=== PATIENT | male | born 1960 | race Caucasian/White ===

== ENCOUNTER 2020-04-20 10:30 | Outpatient (CLI) | payer OTHER, SELFPAY ==
--- NOTE | 2020-04-20 10:54 | XR_ITS ---
WS: [id number] EYE TECHNIQUE: 2 views of the skull CLINICAL INFORMATION: SCREENING FOR MRI COMPARISON: None. FINDINGS: No radiopaque foreign bodies. XR/XR eye foreign body [id number] IMPRESSION: No radiopaque foreign bodies.
--- NOTE | 2020-04-20 10:55 | MR_ITS ---
WS: [id number] MRI LUMBAR SPINE NONCONTRAST TECHNIQUE: Sagittal T1, T2 and STIR imaging. Axial T1 and T2 imaging. CLINICAL INFORMATION: LUMBAR RADICULOPATHY;RT SCIATIC NERVE PAIN;NEURALGIA LOWER E COMPARISON: None. FINDINGS: Mild lumbar curve. No acute compression. Slight anterolisthesis L4 on L5. Disc bulging worse L5-S1. L1-L2: Mild disc bulging with slight effacement of ventral thecal sac. Mild facet arthropathy. Spinal canal and foramen are patent. L2-L3: Mild disc bulging with endplate ridging. Slight effacement of the ventral thecal sac. Narrowin g of the subarticular recess bilaterally left greater than right. Mild facet arthropathy. L3-L4: Mild disc bulging with slight effacement of ventral thecal sac. Narrowing of the right subarti cular recess. Impingement traversing right L4 nerve root. Mild right greater than left foraminal narr owing. Moderate facet arthropathy. L4-L5: Mild disc bulging eccentric to the right. Impingement right subarticular recess and traversing right L5 nerve root. Mild central canal stenosis. Mild right greater than left foraminal narrowing. Moderate facet arthropathy. L5-S1: Right subarticular disc protrusion impinges the traversing right S1 nerve root in the subartic ular recess. Recommend correlation for right S1 nerve root symptoms. Advanced facet arthropathy. Smal l facet effusions. Slight anterolisthesis L5 on S1. Moderate to severe right and mild left foraminal narrowing. Visualized pelvic bony structures: Normal. Paravertebral soft tissues: Normal. MR/MR lumbar spine wo con* [id number] IMPRESSION: 1. Mild lumbar curve. No acute compression. 2. Mild central canal stenosis L2-3, L3-L4 and L4-L5. Impingement traversing l eft L3, right L4, and right L5 nerve roots respectively. 3. Prominent right subarticular disc protrusion L5-S1 impinges the right S1 ne rve root. Recommend correlation for right S1 nerve root symptoms. 4. Moderate to severe right L5-S1 foraminal narrowing. 5. Moderate facet arthropathy L4-L5 and advanced facet arthropathy L5-S1.
== END 2020-04-20 10:31 | disposition home or self-care (01) ==
LOC: RAD 10:33
PROVIDERS: PCP Nurse Practitioner Family; Visit Provider Registered Nurse
DX: Z02.6 Encounter for examination for insurance purposes (principal); M54.16 Radiculopathy, lumbar region; M54.31 Sciatica, right side; M47.816 Spondylosis without myelopathy or radiculopathy, lumbar region; M47.817 Spondylosis without myelopathy or radiculopathy, lumbosacral region; M51.27 Other intervertebral disc displacement, lumbosacral region; M48.061 Spinal stenosis, lumbar region without neurogenic claudication
CPT/HCPCS: 70030; 72148

== ENCOUNTER → 2020-05-10 15:10 | Outpatient (BNVA) | payer OTHER, SELFPAY | PROVIDERS: PCP Nurse Practitioner Family; Referring Provider Registered Nurse; Visit Provider Orthopaedic Surgery | DX: M48.062 Spinal stenosis, lumbar region with neurogenic claudication | CPT/HCPCS: 72114 ==

== ENCOUNTER → 2020-05-25 16:45 | Outpatient (BNVA) | payer OTHER, SELFPAY | PROVIDERS: PCP Nurse Practitioner Family; Visit Provider Orthopaedic Surgery | DX: Z01.812 Encounter for preprocedural laboratory examination (principal); M48.062 Spinal stenosis, lumbar region with neurogenic claudication | CPT/HCPCS: 87635 ==

== ENCOUNTER 2020-05-30 09:10 | Day surgery (SDC) | payer OTHER, SELFPAY ==
[2020-05-23 08:34] VITALS: BMI 30.7
--- NOTE | 2020-05-23 08:57 | P.ANESASSM_ITS ---
Pre-Anesthetic Assessment Pre-Anesthetic Assessment: Height/Weight: Height 1.8 m Weight 99.79 kg Preop Diagnosis: back pain Proposed Procedure: Operation Date: 05/30/20 09:10 Proposed Procedures p L4/5 Laminotomy with partital facetectomy L5/S1 diskectomy M48.06 [id number](Not Applicable) - Carl Ruiz, DO Familial anesthetic complications: None Social: Social History: No alcohol and No tobacco Exam: Pre-Anes Outpt Exam: alert, oriented x 3, clear to auscultation bilaterally and regular rate & rhythm Airway: MP: 3 Dentition: False and Other (missing teeth (knocked out at work) - upper dentures) CV/HEM: CV/HEM: HTN Musc/skel: Musc/skel: Lower Back Pain Comments: R leg pain from back Neuropsych: Neuropsych: Neuropathy (R foot/toes, r lower leg weakness) Anesthetic Plan: ASA status: 2 Anesthesia: General Risk of > 500 ml bloo d loss (7ml/kg in children): No Data Anesthesia Cardiac Studies: No Data to Display
== END 2020-05-30 11:00 | disposition home or self-care (01) ==
LOC: OPS 02-02 13:59
PROVIDERS: PCP Nurse Practitioner Family; Visit Provider Orthopaedic Surgery
DX: Z01.818 Encounter for other preprocedural examination (principal)

== ENCOUNTER → 2020-07-15 09:44 | Outpatient (BNVA) | payer OTHER, SELFPAY | PROVIDERS: PCP Nurse Practitioner Family; Referring Provider Orthopaedic Surgery; Visit Provider Anesthesiology Pain Medicine | DX: M54.41 Lumbago with sciatica, right side (principal); M54.42 Lumbago with sciatica, left side; M48.062 Spinal stenosis, lumbar region with neurogenic claudication; M54.9 Dorsalgia, unspecified | CPT/HCPCS: 99205 ==

== ENCOUNTER → 2020-07-26 13:27 | Outpatient (BNVA) | payer OTHER, SELFPAY | PROVIDERS: PCP Nurse Practitioner Family; Visit Provider Anesthesiology Pain Medicine | DX: M54.16 Radiculopathy, lumbar region (principal); M48.062 Spinal stenosis, lumbar region with neurogenic claudication; M54.9 Dorsalgia, unspecified | CPT/HCPCS: 64483; 64484; J1030; J3490 ==

== ENCOUNTER → 2020-08-09 12:38 | Outpatient (BNVA) | payer OTHER, SELFPAY | PROVIDERS: PCP Nurse Practitioner Family; Visit Provider Anesthesiology Pain Medicine | DX: M54.16 Radiculopathy, lumbar region (principal); M54.9 Dorsalgia, unspecified | CPT/HCPCS: 64483; 64484; J1040; J3490 ==

== ENCOUNTER → 2020-08-26 09:16 | Outpatient (BNVA) | payer OTHER, SELFPAY | PROVIDERS: PCP Nurse Practitioner Family; Visit Provider Anesthesiology Pain Medicine | DX: M54.9 Dorsalgia, unspecified (principal); M48.062 Spinal stenosis, lumbar region with neurogenic claudication | CPT/HCPCS: 99214 ==

== ENCOUNTER → 2020-09-16 10:34 | Outpatient (BNVA) | payer OTHER, SELFPAY | PROVIDERS: PCP Nurse Practitioner Family; Visit Provider Orthopaedic Surgery | DX: Z01.812 Encounter for preprocedural laboratory examination (principal); Z20.822 Contact with and (suspected) exposure to COVID-19 | CPT/HCPCS: 87635 ==

== ENCOUNTER 2020-09-21 08:06 | Day surgery (SDC) | payer OTHER, SELFPAY ==
[2020-09-16 12:22] VITALS: BMI 32.3
--- NOTE | 2020-09-16 12:36 | ANES.PREANE2 ---
Pre-Anesthetic Assessment Pre-Anesthetic Assessment: Height/Weight: Height 1.8 m Weight 105.233 kg Preop Diagnosis: lumbar stenosis Proposed Procedure: Operation Date: 09/21/20 15:25 Proposed Procedures p L4/5 Laminotomy with partital facetectomy 90209 11345 M48.06(Not Applicable) - Carl Ruiz DO s L5/S1 diskectomy(Not Applicable) - Carl Ruiz DO Familial anesthetic complications: None Social: Social History: No alcohol and No tobacco Exam: Pre-Anes Outpt Exam: alert, oriented x 3, clear to auscultation bilaterally and regular rate & rhythm Airway: Cervical ROM: WNL MP: 3 Dentition: False and Other (missing, poor denition) CV/HEM: CV/HEM: HTN Musc/skel: Musc/skel: Lower Back Pain Anesthetic Plan: ASA status: 2 Risk of > 500 ml blood loss (7ml/kg in children): No Other Pertinent Information: States he got blood work at his PCP recently and everything came back good. Patient called office and had them fax to . Awaiting fax results. Data Anesthesia Cardiac Studies: No Data to Display
[2020-09-21] VITALS (9 sets, daily range): BP systolic 136–176; BP diastolic 77–94; PULSE 65–85; RESP 16–23; TEMP 36.1–37.3; O2SAT 94–97
--- NOTE | 2020-09-21 | SCC_ITS ---
Procedure Done: 1. Bilateral laminectomy with partial facetectomis L4/5 2. Bilateral laminectomy with partial facetectomies L5/S1 16.0 seconds of fluoroscopic guidance, for a cumulative dose of 8.90 mGy, was provided to Dr. Ruiz by the radiology department. C-arm images of the lumbar spine were saved for the patient's permanent record. [facility]
--- NOTE | 2020-09-21 | XR_ITS ---
WS: [id number] Lumbar spine, C-arm fluoroscopy views, 09/21/2020 Clinical Data: Laminotomy with partial facetectomy disketomy Comparison: Lumbar spine, 05/10/2020. Findings: Dr. Ruiz performed laminotomy at L4-L5 and L5-S1. XR/XR lumbar spine 2-3V* [id number] Impression: Laminotomy at L4-L5 and L5-S1.
[2020-09-21] MEDS: sodium chloride 0.9% 1,000 ML 30 ML IV (08:37)
--- NOTE | 2020-09-21 09:28 | P.ANESUD_ITS ---
Pre-Anesthetic Update Pre-Anesthetic Assessment: Date of Surgery/Procedure: 09/21/20 Preop Sunita gnosis: lumbar stenosis Proposed Procedure: Operation Date: 09/21/20 09:55 Proposed Procedures p L4/5 Laminotomy with partital facetectomy [id number] M48.06(Not Applicable) - Carl H Sara, DO s L5/S1 diskectomy(Not Applicable) - Carl H Sara, DO Any changes to Pre-Anesthetic Assessment?: No Last Intake: Intake Last Liquid Date 09/20/20 Last Liquid Time 21:00 Last Solid Date 09/20/20 Last Solid Time 18:00 Vitals: Temperature 99.2 F 09/21/20 08:20 Temperature Source Temporal Artery S can 09/21/20 08:20 Pulse Rate 68 09/21/20 08:20 Respiratory Rate 18 09/21/20 08:20 Blood Pressure 141/82 09/21/20 08:43 Blood Pressure Raquel n 101 09/21/20 08:43 Pulse Oximetry 95 09/21/20 08:20 Oxygen Delivery Me thod 09/21/20 08:24 Exam: Pre-Anes Outpt Exam: alert, oriented x 3, clear to auscultation bilaterally and regular rate & rhythm Cardiac Studies: No Data to Display
--- NOTE | 2020-09-21 11:19 | W.PM.OPSUD ---
Surgery/Procedure H&P Update DATE OF PROCEDURE: September 21, 2020 DATE H&P PERFORMED: 08/30/20 H&P UPDATE INFORMATION: I have reviewed H&P completed within last 30 days, I have examined patient prior to procedure and No changes to prior documentation PREOP DIAGNOSIS: lumbar stenosis PLANNED PROCEDURE: Operation Date: 09/21/20 09:55 Proposed Procedures p L4/5 Laminotomy with partital facetectomy [id number] M48.06(Not Applicable) - Carl Ruiz DO s L5/S1 diskectomy(Not Applicable) - Carl Ruiz DO
--- NOTE | 2020-09-21 13:17 | PM.OP ---
Operative Report Date of procedure: September 21, 2020 Pre-op Diagnosis: lumbar stenosis L4/5 and L5/S1 Post-op diagnosis: same Procedure Done: 1. Bilateral laminectomy with partial facetectomis L4/5 2. Bilateral laminectomy with partial facetectomies L5/S1 Surgeon: Carl Ruiz Anesthesia: General Estimated blood loss (mL): 20 Condition: stable Disposition: PACU Procedure: 1. Bilateral laminectomy with partial facetectomis L4/5 2. Bilateral laminectomy with partial facetectomies L5/S1 Patient is brought to the operative suite. After undergoing anesthesia they are placed in the supine position. All areas of impingement are well padded. Patient is then prepped and draped in the normal sterile fashion. A skin incision is made over the L4/5 level. This is confirmed under c-arm guidance. A series of dilators are passed and the tubular retractor is docked on the L4 lamina. A bovie is used to clear the soft tissue off the lamina and the L 4/5 facet joint. A high speed nkechi is then used to perform the laminectomy and take down the medial aspect of the L 4/5 facet joint. A kerrison rongeure was then used to take down the remaining lamina and smooth the edged of the laminectomy up to the point where the ligamentum flavum attaches. Attention was then brought to the medial aspect of the facet joint. The remaining medial aspect of the superior and inferior aspect of the facet joint were taken down with the kerrison from the pedicle of L4 to L 5. The facet joint had significant hypertrophy. Attention was then brought to the Ligamentum Flavum. The ligament was taken down from the lamina of L4 to L5 and out medially to the remaining facet joint. The ligament was thick. The dura was then exposed. The dura was in good repair. The L4 nerve was then traced with a curette out the L4/5 foramen and found to be adequately decompressed. The L5 nerve was traced with a curette around the L5 pedicle. The lateral recess was opened with a kerrison helping to further decompress the L5 nerve. The tubular retractor was then tilted to the contralateral side. The bovie was used to take down the soft tissue on the spinous process. The high speed nkechi was used to take down the spinous process and then the contralateral lamina of L4. The kerrison rongeur was used to take down the remaining lamina to the point where the ligamentum flavum attached and the ligamentum flavum was taken down from L4 to L5. The kerrison rongeur was then used to reach across and take down the medial aspect of the contralateral L4/5 facet joint.The currete was used to trace the contralateral L4 nerve out the L4/5 foramen to make sure it was decompressed adequatesly and the L5 was traced around the L5 pedicle. The lateral recess was opened further with the kerrison to ensure the L5 is adequately decompressed. A skin incision is made over the L5/S1 level. This is confirmed under c-arm guidance. A series of dilators are passed and the tubular retractor is docked on the L5 lamina. A bovie is used to clear the soft tissue off the lamina and the L 5/S1 facet joint. A high speed nkechi is then used to perform the laminectomy and take down the medial aspect of the L 5/S1 facet joint. A kerrison rongeure was then used to take down the remaining lamina and smooth the edged of the laminectomy up to the point where the ligamentum flavum attaches. Attention was then brought to the medial aspect of the facet joint. The remaining medial aspect of the superior and inferior aspect of the facet joint were taken down with the kerrison from the pedicle of L5 to S1. The facet joint had significant hypertrophy. Attention was then brought to the Ligamentum Flavum. The ligament was taken down from the lamina of L5 to S1 and out medially to the remaining facet joint. The ligament was thick. The dura was then exposed. The dura was in good repair. The L5 nerve was then traced with a curette out the L5/S1 foramen and found to be adequately decompressed. The LS1 nerve was traced with a curette around the S1 pedicle. The lateral recess was opened with a kerrison helping to further decompress the S1 nerve. The tubular retractor was then tilted to the contralateral side. The bovie was used to take down the soft tissue on the spinous process. The high speed nkechi was used to take down the spinous process and then the contralateral lamina of L5. The kerrison rongeur was used to take down the remaining lamina to the point where the ligamentum flavum attached and the ligamentum flavum was taken down from L5 to S1. The kerrison rongeur was then used to reach across and take down the medial aspect of the contralateral L5/S1 facet joint.The currete was used to trace the contralateral L5 nerve out the L5/S1 foramen to make sure it was decompressed adequatesly and the S1 was traced around the S1 pedicle. The lateral recess was opened further with the kerrison to ensure the S1 is adequately decompressed. Wound is then irrigated copiously with saline and surgiflo is used to stop any bleeding. The tubular retractor is removed and the wound is closed with vicryl and monocryl suture. Glue is then used to protect the wound. A sterile dressing is then placed. Patient was then placed in the supine position and transferred to the PACU in stable condition.
--- NOTE | 2020-09-21 13:32 | SUR.PHASEI ---
PT RESTLESS , DOES NOT AWAKE, PT RUBBING NOSE OFF AND ON TAKES MASK OFF REPEATEDLY VSS.
[2020-09-21] MEDS: HYDROcodone-acetaminophen 5-325 mg Tablet 1 TAB PO (14:20)
--- NOTE | 2020-09-21 14:31 | ANE.PACU2 ---
Inpatient post-anesthesia follow up: Airway intact: Yes Vital signs: Temperature 97 F Pulse Rate 68 Respiratory Rate 18 Blood Pressure 136/77 Pulse Oximetry 95 Oxygen Delivery Me thod Room Air Oxygen Flow Rate 8 Fraction of Inspir ed Oxygen Hydration adequate: Yes Nausea and vomiting: No Pain level: 3 Mental status: Baseline
== END 2020-09-21 14:40 | disposition home or self-care (01) ==
PROVIDERS: PCP Nurse Practitioner Family; Visit Provider Orthopaedic Surgery
PROC: (CPT 63047; principal; 2020-09-21 09:55)
PROC: (CPT 63047; 2020-09-21 09:55)
DX: M48.061 Spinal stenosis, lumbar region without neurogenic claudication (principal); I10 Essential (primary) hypertension
CPT/HCPCS: 63047; 63048; 72100; 76000; J0690; J1100; J2405; J2704; J2710; J3010; J3490; J7030

== ENCOUNTER → 2020-12-20 07:56 | Outpatient (BNVA) | payer OTHER, SELFPAY | PROVIDERS: PCP Nurse Practitioner Family; Visit Provider Orthopaedic Surgery | DX: M48.062 Spinal stenosis, lumbar region with neurogenic claudication (principal); Z98.890 Other specified postprocedural states; Z47.89 Encounter for other orthopedic aftercare | CPT/HCPCS: 72100 ==

== ENCOUNTER 2021-05-09 14:44 | Outpatient (CLI) | payer OTHER, SELFPAY ==
--- NOTE | 2021-05-09 15:15 | MR_ITS ---
WS: [id number] MRI LUMBAR SPINE WITH AND WITHOUT CONTRAST HISTORY: Prior surgery in September 2020. Bilateral leg pain. COMPARISON: 04/20/2020 TECHNIQUE: Sagittal and axial multisequence imaging is submitted. Sagittal and axial T1 fat sat seque nces ProHance 17 cc IV. Mild degenerative changes throughout the cervical and thoracic spine. Mild central stenosis at C3-4 a nd C5-6. Similar to the prior study. 3 mm retrolisthesis of L2. Disc spaces are narrowed throughout, most significant at L2-3 and L3-4. No marrow edema or fracture. Conus terminates normally at L1-2 disc level. L1-L2: Mild annular disc bulging with a small central disc protrusion. Mild effacement of ventral CS F and facet arthritis. No high-grade stenosis. L2-L3: Mild annular disc bulging and osteophytic ridging. Shallow central disc protrusion and disc de monstrates broad bulging into the LEFT foramen. Mild bilateral foraminal and subarticular recess sten osis. L3-L4: Diffuse osteophytic ridging with a central disc protrusion. Broad-based disc bulge and possibl e protrusion extends into the RIGHT foramen and far lateral. There is disc contacting the L3 nerve ro ot and mild effacement of CSF centrally. L4-L5: Mild annular disc bulging with a shallow RIGHT paracentral broad-based protrusion. Effacement of the ventral CSF. There is disc contacting the L4 and L5 nerve roots. New RIGHT hemilaminectomy def ect. Small amount of fluid in the facet joints. Bilateral foraminal stenosis is mild and similar to t he prior study. L5-S1: Diffuse annular disc bulging and osteophytic ridging. RIGHT paracentral disc/osteophyte comple x encroaching upon the thecal sac. There is less disc and osteophyte contact on the RIGHT S1 nerve ro ot. Effacement of fat in the RIGHT L5-S1 foramen. Suspect disc protrusion in the RIGHT foramen. The e xtent of fat effacement has progressed since the prior study. Marked facet joint arthritis bilaterall y and increase fluid in the facet joints. RIGHT hemilaminectomy defect. Postoperative enhancement jeancarlos ng the hemilaminectomy site. No abscess. There is enhancement surrounding the L4 and L5 facet joints in the soft tissues. No abscess or postop erative collection. MR/MR lumbar spine wo/w con [id number] IMPRESSION: 1. Since the prior lumbar MRI examination patient's undergone RIGHT hemilamine ctomy defects at L4-5 and L5-S1. Satisfactory postsurgical findings. No abscess . 2. Improved RIGHT subarticular disc protrusion at L5-S1 with less contact on t he RIGHT S1 nerve root. There is still a small amount of disc contact on the ne rve root. Increased soft tissue in the RIGHT foramen with adjacent enhancement. I suspect there is probably a small disc protrusion in the RIGHT foramen causi ng effacement although some of these changes may be postoperative. The RIGHT fo raminal stenosis at L5-S1 has progressed. 3. Disc bulging and a shallow RIGHT paracentral disc protrusion at L4-5. Disc slightly contacts the L4 and L5 nerve roots bilaterally. Mild foraminal stenosi s similar to this prior study. 4. There is multilevel facet joint arthritis and disc disease and osteophytosi s as above. No high-grade stenosis. The most significant findings are L4-5 and L5-S1.
== END 2021-05-09 14:45 | disposition home or self-care (01) ==
LOC: RADSHAW 14:49
PROVIDERS: PCP Nurse Practitioner Family; Visit Provider Orthopaedic Surgery
DX: M48.062 Spinal stenosis, lumbar region with neurogenic claudication (principal); M96.1 Postlaminectomy syndrome, not elsewhere classified; M51.27 Other intervertebral disc displacement, lumbosacral region; M51.26 Other intervertebral disc displacement, lumbar region; M51.36 Other intervertebral disc degeneration, lumbar region; M51.37 Other intervertebral disc degeneration, lumbosacral region
CPT/HCPCS: 72158; A9579

== ENCOUNTER 2021-08-18 13:18 | Inpatient (IN) | payer OTHER, SELFPAY ==
[2021-08-17 11:38] VITALS: BMI 33.3
[2021-08-18] VITALS (29 sets, daily range): BP systolic 82–133; BP diastolic 50–83; PULSE 67–89; RESP 12–22; TEMP 36.3–36.8; O2SAT 90–96; BMI 19.3
--- NOTE | 2021-08-18 | SCC_ITS ---
Procedure done: 1. L5/S1 Interbody fusion with posterolateral fusion 2. Instrumentation L4 to S1 3. Cage at L5/S1 4. revision Laminectomy L5 with partial facetectomies L5/S1 5. revision laminectomy L4 with partial facetectomies L4/5 6. use of autograft from same incision 7. allograft 8. Bone marrow aspirate from right Iliac crest 9. computer navigation / stereotactic for spine 9 seconds of fluoroscopic guidance, for a cumulative dose of 51.9 mGy, was provided to Dr. Ruiz by the radiology department. C-arm images of the lumbar spine were saved for the patient's permanent record. [facility]
--- NOTE | 2021-08-18 | XR_ITS ---
WS: [id number] C-ARM RADIOGRAPHS LUMBAR FUSION; 4 IMAGES HISTORY: lumbar fusion l4 to pelvis COMPARISON: None available. Intraoperative imaging during extensive posterior lumbar fusion. Fusion is noted from L4 to S1 with i nterbody spacer at L5-S1. XR/XR lumbar spine 2-3V* [id number] IMPRESSION: Intraoperative imaging during posterior fusion lumbar spine.
[2021-08-18 06:31] LABS: Basophils % 0.5 %; Eosinophils # 0.2 10^3/uL (0.0-0.8); Eosinophils % 2.3 %; Hematocrit 47.9 % (42.0-52.0); Hemoglobin 16.1 g/dL (11.7-16.6); Lymphocytes # 2.5 10^3/uL (0.8-4.8); Lymphocytes % 33.6 %; Mean Corpuscular HGB Conc 33.6 g/dL (30.0-36.0); Mean Corpuscular Hemoglobin 29.9 pg (28.0-34.0); Mean Corpuscular Volume 88.9 fl (80-94); Mean Platelet Volume 12.3 fL (7.4-10.4); Monocytes # 0.6 10^3/uL (0.2-0.9); Monocytes % 8.4 %; Neutrophils # 4.07 10^3/uL (1.8-7.7); Neutrophils % 55.1 %; Nucleated Red Blood Cells % 0 %; Platelet Count 165 10^3/cmm (130-400); Red Blood Count 5.39 10^6/uL (4.1-5.3); Red Cell Distribution Width 12.5 % (12.1-15.1); White Blood Count 7.4 10^3/uL (4.0-10.0)
--- NOTE | 2021-08-18 06:39 | ANES.PREANE2 ---
Pre-Anesthetic Assessment Height/Weight: Height 1.8 m Weight 108.409 kg Preop Diagnosis: Lumbar stenosis with neurogenic claudication Operation Date: 08/18/21 07:00 Proposed Procedures p PLIF L4/5, L5/S1; 57087/48031/[id number] X2/83719/74980/M48.062(Not Applicable) - Carl Ruiz, Familial anesthetic complications: None Was Beta Stone taken within 24 hours: N/A Was Clonidine taken within 24 hours: N/A Last intake: Intake Last Liquid Date 08/17/21 Last Liquid Time 20:30 Last Solid Date 08/17/21 Last Solid Time 18:00 Social No alcohol and No tobacco Exam alert, oriented x 3, clear to auscultation bilaterally and regular rate & rhythm Airway Mallampati: Class III Dentition: false Pulmonary None reported CV/HEM Hypertension (On same dose of lisinopril for 3 years, has added amlodipine) Hepatic None reported GI None reported Metabolic None reported Musc/skel Lower Back Pain Neuropsych None reported Anesthetic Plan ASA status: 2 Anesthesia: General Risk of > 500 ml blood loss (7ml/kg in children): No Medications/Allergies Home Medications Medication Instructions Recorded Confirmed Last Taken Type lisinopril 20 mg tablet 20 mg PO DAILY 05/10/20 08/18/21 08/17/21 History amlodipine 5 mg tablet 5 mg PO DAILY 07/26/20 08/18/21 08/18/21 History ibuprofen 200 mg tablet 200 mg PO Q6H PRN 07/11/21 08/18/21 08/17/21 History acetaminophen 325 mg capsule 325 mg PO QID PRN 08/17/21 08/18/21 08/16/21 History (Tylenol) aspirin 81 mg tablet,delayed 81 mg PO DAILY 08/17/21 08/18/21 08/16/21 History release Allergies Allergy/AdvReac Type Severity Reaction Status Date / Time No Known Allergies Allergy Verified 08/18/21 05:59 PFSH Anesthesia Social History Smoking and tobacco status: former smoker Data Anesthesia : 08/18/21 06:14 Short CBC 08/18/21 Range/Units 06:14 WBC 7.4 (4.0-10.0) 10^3/uL Hgb 16.1 (11.7-16.6) g/dL Hct 47.9 (42.0-52.0) % MCV 88.9 (80-94) fl Plt Count 165 (130-400) 10^3/cmm Neut % (Auto) 55.1 % Neut # (Auto) 4.07 (1.8-7.7) 10^3/uL Cardiac Studies: No Data to Display
[2021-08-18] MEDS: sodium chloride 0.9% 1,000 ML 30 ML IV (06:43)
--- NOTE | 2021-08-18 06:51 | W.PM.OPSUD ---
Surgery/Procedure H&P Update DATE OF PROCEDURE: August 18, 2021 DATE H&P PERFORMED: 07/18/21 H&P UPDATE INFORMATION: I have reviewed H&P completed within last 30 days, I have examined patient prior to procedure and No changes to prior documentation PREOP DIAGNOSIS: Lumbar stenosis with neurogenic claudication PLANNED PROCEDURE: Operation Date: 08/18/21 07:00 Proposed Procedures p PLIF L4/5, L5/S1; [id number] X2/50145/54770/M48.062(Not Applicable) - Carl Ruiz DO
[2021-08-18 07:12] LABS: Anion Gap 13.3 (5-19); Blood Urea Nitrogen 21 mg/dL (8-23); Calcium 8.2 mg/dL (8.5-10.5); Carbon Dioxide 25 mmol/L (22-29); Chloride 105 mmol/L (98-107); Glucose 119 mg/dL (65-115); Osmolality Calculated 292 mOsm/kg (285-295); Potassium 4.3 mmol/L (3.5-5.1); Sodium 139 mmol/L (136-145)
[2021-08-18] MEDS: vancomycin 1,000 MG SDV 1000 MG XX (07:48)
[2021-08-18] MEDS: heparin, porcine 1,000 unit/mL INJ 10 mL 10000 UNIT INJECTION (07:49)
--- NOTE | 2021-08-18 08:29 | SUR.OPER ---
notified of surgical progress.
--- NOTE | 2021-08-18 11:25 | P.PCN_ITS ---
PACU note Narrative: VSS, Good respiratory effort, report to PEARL HAND Exam: awake
--- NOTE | 2021-08-18 11:25 | PM.PACU ---
PACU note Narrative: VSS, Good respiratory effort, report to MANAGER SHOP Exam: awake
[2021-08-18] MEDS: fentaNYL 50 mcg/mL INJ 2mL IVP ×2 (11:39→11:49)
--- NOTE | 2021-08-18 11:42 | SUR.PHASEI ---
11:16 RECEIVED PATIENT FROM OR STAFF. RESPONDS TO VOICE AIRWAY SUCTIONED. NSR ON MONITOR. GOOD CHEST RISE AND FALL. 11:25 ROM AND SENSATION IN ALL 4 EXTREMITIES. 11:30 MEDICATED FOR BACK PAIN. DENIES NAUSEA.
--- NOTE | 2021-08-18 11:44 | P.OP_ITS ---
Operative Report Date of procedure: August 18, 2021 Pre-op diagnosis: Preop Diagnosis Lumbar stenosis with neurogenic claudication Post-op diagnosis: same Procedure done: 1. L5/S1 Interbody fusion with posterolateral fusion 2. Instrumentation L4 to S1 3. Cage at L5/S1 4. revision Laminectomy L5 with partial facetectomies L5/S1 5. revision laminectomy L4 with partial facetectomies L4/5 6. use of autograft from same incision 7. allograft 8. Bone marrow aspirate from right Iliac crest 9. computer navigation / stereotactic for spine Surgeon: Carl Ruiz Information Technology Security Analyst: Canelo Bravo Information Technology Security Analyst: The study assistant, Canelo Bravo, PAC was needed for his expertise under the microscope. He was important and necessary throughout the procedure to complete in a safe and timely manner. He assisted with patient positioning prepping and draping tissue retraction suctioning of the operative field protection of the dural sac and tissue closure Estimated blood loss (mL): 500 Procedure: 1. L5/S1 Interbody fusion with posterolateral fusion 2. Instrumentation L4 to S1 3. Cage at L5/S1 4. revision Laminectomy L5 with partial facetectomies L5/S1 5. revision laminectomy L4 with partial facetectomies L4/5 6. use of autograft from same incision 7. allograft 8. Bone marrow aspirate from right Iliac crest 9. computer navigation / stereotactic for spine Patient is brought to the operative suite. After undergoing anesthesia, the patient had neuro monitoring attached. Patient was then placed in the prone position on the Ramses table. All areas of impingement were well-padded. Patient was then prepped and draped in the normal sterile fashion. Skin incision was then made over the L4 to S1 space. Subperiosteal dissection was made out to the transverse processes of L4 bilaterally and L5 bilaterally and out to the sacral ala bilaterally. Once exposure was complete attention was then brought to getting the bone marrow aspirate. The [employer] bone marrow aspirate kit was used to aspirate bone marrow aspirate. This was done by using the sharp probe to open up the bone. Aspiration was performed and then the blunt probe was then used to dissect down to through the bone tunnel. An aspirating well drawn back a millimeter approximately 20 cc of bone marrow aspirate was used. And mixed with the allograft and autograft bone that will be used. Next attention brought to placing the fiducial. 2 pins were placed into the right iliac crest. These pins were removed at the end of the case. These pins were then attached to the fiducial. The C-arm was then brought in and spun around the patient. The information from the C-arm was then linked to the computer and then to the fiducial in order to facilitate using the computer navigation for placing the pedicle screws. The technique for placing the pedicle screws was to use a drill followed by the gearshift probe linked to computer navigation Followed by the ball probe to feel the superior inferior medial lateral tejeda of the pedicles. Then placement of the screws with computer navigation Was done at each pedicle. Screws were placed at L4 bilaterally and L 5 bilaterally and S1 pedicles bilaterally. Next attention was brought to doing the laminectomy at L4. The ligamentum flavum was taken down from L4-L5. He was started on the right side. It was freed up from the bone. This was done using a high-speed bur patient had a previous right-sided laminotomy this was taken down with curettes Bovie and Kerrison rongeurs. The facet was taken down medially on the right side. Facil itate freeing up the L4 nerve as it passed out the L4-5 foramen on the right side. This process was also repeated on the left side the L4 nerve roots were completely freed up. And then the medial aspect of the facet along the pedicle was taken down on both the right and left sides around the L5 pedicle. The L5 nerve root was identified and completely freed up as it passed around the L5 pedicle bilaterally. Next attention was brought to performing the laminectomy ofL5. This was done using the high-speed bur Kerrisons and curettes. Once the lamina was removed and then attention was brought to performing a partial facetectomy on the contralateral side. This was done again using the high-speed bur curettes and Kerrisons. The ligamentum flavum was taken down bilaterally from L5 to S1. Attention was then brought to the facet on the ipsilateral side. The facet was taken down. The S1 nerve was decompressed as it passed around the S1 pedicle. The laminectomy was done for purposes of decompressing the nerve as well as placement of the cage. The L5 nerve was identified as it traversed through the L5/S1 foramen. The thecal sac was identified and retracted. The L5/S1 disc base was identified. Using a knife the disc base was opened. And then sequential scotty were placed. The first shaver was a 6 and the last shaver was a 10. Using a pituitary and down going curette the endplates were scraped and disc material was removed from the space. Once adequate decompression of the disc base was felt to be had. Osteoamp sponge was packed into the anterior aspect of the disc base. Then a size 11 cage from [employer] was placed after packing osteoamp into the cage. While placing the cage the thecal sac and S1 nerve was protected. C arm was used to ensure that the cages placed in the appropriate position. Attention was then brought to attaching the rods to the screws placed in the L 4 bilaterally, 5 bilaterally and S1 bilaterally. Caps were torqued into position. Locking the construct in place. Wound was copiously irrigated and then attention was brought to decorticating the facets and transverse processes laterally. Bone that was taken down from the lamina was used along with osteoamp fibers and sponges were packed into the lateral gutters along the facet joints. This was done bilaterally. Wound was then closed in a layered fashion starting with the thoracolumbar fascia. 0-vicryl was used the sub cutaneous tissue was closed with 2-0 vicryl and skin with 4-0 monocryl. Glue was then used to seal the skin and a steril dressing was applied. Patient was then placed in the supine position. The endotracheal tube was removed and patient was transferred to the PACU in stable condition.
[2021-08-18] MEDS: HYDROmorphone 1 mg/mL INJ 1 mL 0.5 MG IVP ×3 (11:55→12:40)
[2021-08-18] MEDS: morphine 4 mg/mL SDV 1 mL 2 MG IVP (14:08)
[2021-08-18] MEDS: lactated ringers 1,000 ML 90 ML IV (14:08)
[2021-08-18] MEDS: HYDROcodone-acetaminophen 5-325 mg Tablet PO ×3 (15:22→23:46)
--- NOTE | 2021-08-18 16:04 | PC.NURSE ---
Received patient from surgery around 1315. Vitals stable. Dressing dry, clean, and intact. Drain intact and draining. Pain medications are being given at patients request. Drain at 180 mls out. Will continue to monitor and give report to night nurse.
--- NOTE | 2021-08-18 16:06 | ANE.PACU2 ---
Inpatient post-anesthesia follow up: Airway intact: Yes Vital signs: Temperature 97.6 F Pulse Rate 76 Respiratory Rate 18 Blood Pressure 118/67 Pulse Oximetry 92 Oxygen Delivery Me thod Nasal Cannula Oxygen Flow Rate 3.5 Fraction of Inspir ed Oxygen Hydration adequate: Yes Nausea and vomiting: No Pain level: 2 Mental status: Baseline
[2021-08-18] MEDS: ketorolac 30 mg/mL INJ IVP (16:39)
[2021-08-18] MEDS: lisinopril 20 mg Tablet PO (16:40)
[2021-08-18] MEDS: docusate sodium 100 mg Capsule PO (17:43)
[2021-08-18] MEDS: alum-mag-hydroxide-sime 30 mL UDC PO (23:47)
[2021-08-19] VITALS: BP 110/61; PULSE 80; RESP 18; TEMP 36.7; O2SAT 93
[2021-08-19] MEDS: lactated ringers 1,000 ML 90 ML IV ×2 (00:47→09:18)
[2021-08-19 04:38] VITALS: BP 115/51; PULSE 74; RESP 16; TEMP 37.2; O2SAT 92
[2021-08-19] MEDS: enoxaparin 40 mg/0.4 mL Syringe SUBCUT (06:09)
[2021-08-19 08:00] VITALS: PULSE 75; RESP 16; O2SAT 92
[2021-08-19] MEDS: amlodipine 5 mg Tablet PO (08:09)
[2021-08-19] MEDS: docusate sodium 100 mg Capsule PO (08:09)
[2021-08-19] MEDS: aspirin 81 mg EC Tablet PO (08:09)
[2021-08-19 08:11] VITALS: BP 143/72; PULSE 79; RESP 20; TEMP 37.1; O2SAT 94
[2021-08-19] MEDS: HYDROcodone-acetaminophen 5-325 mg Tablet PO (09:17)
--- NOTE | 2021-08-19 10:42 | P.DS_ITS ---
Discharge Providers Date of Admission: 08/18/21 13:18 Date of Discharge: August 19, 2021 Attending Provider at Admission: Carl Ruiz DO Attending Provider at Discharge: Carl Ruiz DO Primary Care Provider: REBECCA Carrillo Reason for Visit Reason for Visit: spinal stenosis, lumbar region Hospital Course Hospital Course Uneventful Physical Exam Narrative: Patient up ambulating by himself minimal pain at this time. Urinary Catheter Management: Erwin: Cath Placed During This Visit: yes Reason for Continuing Indwelling Catheter: Other Urinary Catheter Date of Insertion: 08/18/21 Urinary Catheter Time of Insertion: 07:30 Discharge Data Studies Completed and Pending Completed Studies During Hospitalization Category Date Time Status XR lumbar spine 2-3V* [id number] Routine Exams 08/18/21 Completed Pending at discharge Category Date Time Status C-arm Fluoroscopy [id number] Routine Exams 08/18/21 05:49 Taken Retype for Patiets ABO/Rh Routine Lab 08/18/21 07:25 Ordered Pathology: Surgical [PTH] Routine Pth 08/18/21 10:51 Ordered Radiology Impressions Lumbar Spine X-Ray 08/18/21 00:00 IMPRESSION: Intraoperative imaging during posterior fusion lumbar spine. Laboratory Results WBC 7.4 10^3/uL (4.0-10.0) 08/18/21 06:14 RBC 5.39 10^6/uL (4.1-5.3) H 08/18/21 06:14 Hgb 16.1 g/dL (11.7-16.6) 08/18/21 06:14 Hct 47.9 % (42.0-52.0) 08/18/21 06:14 MCV 88.9 fl (80-94) 08/18/21 06:14 MCH 29.9 pg (28.0-34.0) 08/18/21 06:14 MCHC 33.6 g/dL (30.0-36.0) 08/18/21 06:14 RDW 12.5 % (12.1-15.1) 08/18/21 06:14 Plt Count 165 10^3/cmm (130-400) 08/18/21 06:14 MPV 12.3 fL (7.4-10.4) H 08/18/21 06:14 Neut % (Auto) 55.1 % 08/18/21 06:14 Lymph % (Auto) 33.6 % 08/18/21 06:14 Oceana % (Auto) 8.4 % 08/18/21 06:14 Eos % (Auto) 2.3 % 08/18/21 06:14 Baso % (Auto) 0.5 % 08/18/21 06:14 Neut # (Auto) 4.07 10^3/uL (1.8-7.7) 08/18/21 06:14 Lymph # (Auto) 2.5 10^3/uL (0.8-4.8) 08/18/21 06:14 O[place]ana # (Auto) 0.6 10^3/uL (0.2-0.9) 08/18/21 06:14 Eos # (Auto) 0.2 10^3/uL (0.0-0.8) 08/18/21 06:14 Baso # (Auto) 0.0 10^3/uL (0.0-0.1) 08/18/21 06:14 Nucleated RBC % (auto) 0 % 08/18/21 06:14 Nucleated RBCs # 0.0 /100WBC 08/18/21 06:14 Sodium 139 mmol/L (136-145) 08/18/21 06:40 Potassium 4.3 mmol/L (3.5-5.1) 08/18/21 06:40 Chloride 105 mmol/L (98-107) 08/18/21 06:40 Carbon Dioxide 25 mmol/L (22-29) 08/18/21 06:40 Anion Gap 13.3 (5-19) 08/18/21 06:40 BUN 21 mg/dL (8-23) 08/18/21 06:40 Creatinine 0.6 mg/dL (0.7-1.2) L 08/18/21 06:40 GFR Calculation 137.0 mL/min (90-130) H 08/18/21 06:40 Glucose 119 mg/dL (65-115) H 08/18/21 06:40 Calculated Osmolality 292 mOsm/kg (285-295) 08/18/21 06:40 Calcium 8.2 mg/dL (8.5-10.5) L 08/18/21 06:40 Blood Type O Negative 08/18/21 06:14 Rho(D) Type Negative 08/18/21 06:14 Antibody Screen Negative 08/18/21 06:14 Vitals Last Vital Signs Temp 98.8 F 08/19/21 08:11 Pulse 79 08/19/21 08:11 Resp 20 H 08/19/21 08:11 BP 143/72 08/19/21 08:11 Pulse Ox 94 08/19/21 08:11 Discharge Plan Discharge Patient Disposition: Home Condition: Stable Prescriptions: New hydrocodone-acetaminophen 5-325 mg tablet 1 - 2 tab PO .Q4-6H Qty: 40 0RF Continued lisinopril 20 mg tablet 20 mg PO DAILY 0RF amlodipine 5 mg tablet 5 mg PO DAILY 0RF ibuprofen 200 mg tablet 200 mg PO Q6H PRN (Reason: Pain) 0RF aspirin 81 mg Tablet,Delayed Release (Dr/Ec) 81 mg PO DAILY 0RF acetaminophen [Tylenol] 325 mg Capsule 325 mg PO QID PRN (Reason: Pain) 0RF Discharge Orders: Discharge Order (Routine); Ordered 08/19/21 Ordered By: Carl Ruiz Other Ambulatory Orders: DME: Walker (Order) Location: None Selected Ordered By: Carl Ruiz Referrals: Carl Ruiz, DO [Physician] - Discharge Diet: Advance as tolerated Discharge Activity: Limit activity as instructed Patient Instructions: Hydrocodone/Acetaminophen (By mouth), Lumbar Spinal Fusion (GEN), Opioid Safety Activity Restrictions/Additional Instructions: Thank you for [facility] for your care! The following is a list of instructions, from your provider, to follow upon your discharge to ensure you have the optimal recovery from your recent injury orsurgery. Follow-up care is a kearney part of your treatment and safety. Be sure to make and go to all appointments, and call your doctor if you are having problems. If you do not already have a follow-up appointment made, call Dr. Ruiz office in the next 1-3 days to make follow up appointment for 1 week (August 24) at [phone]. It is also a good idea to know your test results and keep a list of the medicines you take. Medications will be prescribed for you at your provider's discretion. These medications are to be used as instructed; if they are taken more often that prescribed they will not be refilled early and in most cases will not be refilled at all. > When a refill is needed,you should contact mauricio rao 2-3 business days before your prescription runs out. Medications will NOT be refilled by womens health nurse practitioner providers after hours! > Many pain medications contain Tylenol (Acetaminophen). Do not consume more than 4,000 mg of Tylenol per day in total with any combination ofmedications. > Pain medications can cause constipation. Please use an over the counter stool softener as directed, while taking pain medications. Consulty our local pharmacist with questions or recommendations on stool softeners. If constipation persists, contact our office or your primary care provider. > While under our care,you are not to receive pain medications or other controlled substances from any other provider unless our office is notified and approves. Any attempts to do so will result in refusal to prescribe any further pain medications and possible dismissal from our practice. Keep dressing on at all times. OK to shower. Do not put water directly on dressing. Pat dry with towel if it gets wet We will change dressing in the office ? Walking is essential for the healing process after surgery. We would like you to slowly advance your walking. This should be done on relatively flat clear ground (inside or out) or can be done on a treadmill. Remember this goal does not have to happen all at once, slowly increase your distance and duration. This can be broken into more more than one walk per day as tolerated. Patients who walk as directed after surgery rarely require Physical Therapy. In the unlikely event this issue arises your provider will direct hospital staff to make the appropriate arrangements. ? No lifting over 5 pounds {a gallon of milk) or bending/twisting until further notice. Each of these activities places an unnecessary amount of stress onto the body and can impede the delicate healing process. > Instead of bending at the waist, keep your back straight and bend at the knees. > Instead of twisting your torso, keep your back straight and turn your entire body with your feet. ? You may sleep in any position which makes you comfortable. Many patients find comfort sleeping in a reclining chair. It is not abnormal to have difficulty sleeping for the first several weeks following your surgery. We recommend trying Benadry! or Tylenol PM as directed to help with your sleeping difficulties. Both medications are over the counter and available withoutprescription. ? NO SMOKING!!! Smoking dramatically increases the probability of developing postoperative wound infections. ? Common complaints after lumbar and/or thoracic spine surgery include, but are not limited to: numbness and/or tingling in the legs, pain around the incision and surrounding tissues, muscle spasms, or stiffness of the middle to low back. Contact our office if these symptoms persist or if an acute change occurs. ? No driving for the first 3-5days, and not while taking narcotics [] until seen at your follow-up appointment and cleared. There are no restrictions for riding on short trips, however if you take a longer trip, arrangements should be made to make regular stops to get out of the vehicle and stretch . ? Swelling is an unfortunate event that will take place with any surgery and is the primary source of your postoperative discomfort. While walking and regular approved activities helps control inflammation, there are additional steps you can take to minimizeswelling. > Place ice over the surgical site and surrounding tissue for twenty minutes, followed by applying a low/medium heat (heating pad) for an additional twenty minutes every 1-2 hours as needed for painrelief. > You may use of over the counter anti-inflammatory medications (Ibuprofen, Motrin, Aleve, Advil, etc) as directed on the package label. These types of medicines wm significantly reduce the amount of discomfort you experience after surgery from swelling. It should be noted that if you have and allergy to any of these medications, or a history of ulcers or kidney disease you should consult you primary care provider prior to starting these medications. Discharge Attestations Time Spent in Discharge Care*: less than 30 min Quality Metrics Clinical Quality Measures [ No reported AMI, CVA or VTE this stay] Coding Level of Care Code Acute g MACIEJ VELÁZQUEZ note
--- NOTE | 2021-08-19 11:27 | PC.NURSE ---
Discharge teaching and education given to patient and , all questions were answered at this time. IV, hemavac, and arechiga discontinued. Dressing still clean and intact. Belongings account for. Vitals stable. Pain under control.
[2021-08-19 11:28] VITALS: BP 143/72; PULSE 79; RESP 20; TEMP 37.1; O2SAT 94
== END 2021-08-19 11:29 | disposition home or self-care (01) | DRG 455 ==
LOC: MEDSURG 13:18
PROVIDERS: Anesthesiology; Admitting Provider Orthopaedic Surgery; PCP Nurse Practitioner Family; Visit Provider Orthopaedic Surgery
PROC: 0SG0071 Fusion of Lumbar Vertebral Joint with Autologous Tissue Substitute, Posterior Approach, Posterior Column, Open Approach (ICD-10-PCS; CPT 22612; principal; 2021-08-18 07:00)
DX: M48.062 Spinal stenosis, lumbar region with neurogenic claudication (principal); Z87.891 Personal history of nicotine dependence; Z79.82 Long term (current) use of aspirin
CPT/HCPCS: 36415; 51702; 72100; 76000; 80048; 85025; 86850; 86900; 88304; 96372; 97116; 97161; 97530; C1713; C1776; J0690; J1100; J1170; J1644; J1650; J1885; J2270; J2405; J2704; J2710; J3010; J3370; J3490; J7030

== ENCOUNTER → 2021-08-29 11:16 | Outpatient (BNVA) | payer OTHER, SELFPAY | PROVIDERS: PCP Nurse Practitioner Family; Visit Provider Physician Assistant | DX: Z98.1 Arthrodesis status (principal); M48.062 Spinal stenosis, lumbar region with neurogenic claudication; Z48.89 Encounter for other specified surgical aftercare | CPT/HCPCS: 72100 ==

== ENCOUNTER 2021-10-12 13:06 | Outpatient (CLI) | payer OTHER, SELFPAY ==
--- NOTE | 2021-10-12 13:30 | CT_ITS ---
WS: [id number] CT LUMBAR SPINE, noncontrast. HISTORY: lumbar pain TECHNIQUE: Contiguous 2.5 mm axial imaging are performed. Sagittal and coronal reformats are submitte d and reviewed. All CT scans at [facility] use at least one of these dose optimization techni ques: automated exposure control; mA and/or kV adjustment per patient size (includes targeted exams w here dose is matched to clinical indication); or iterative reconstruction. IV contrast: None DLP: 1456.56 mGy.cm COMPARISON: Lumbar spine radiograph 08/29/2021. Status post posterior lumbar fusion extending from L4 S1. Large posterior laminectomy defects at L4 a nd L5. Interbody spacer at L5-S1. No lucency around the hardware. Bone grafting remains morselized wi thout fusion. No lucency or loosening around the pedicle screws. L4 anterolisthesis by 4 mm. L3 retro listhesis by 3 mm. The very distal at L2-3 otherwise mild throughout the lumbar spine. No fracture. L1-2: Mild annular disc bulging and osteophytic ridging. Mild central and bilateral subarticular rece ss stenosis. Mild bilateral foraminal stenosis, LEFT greater than RIGHT. L2-3: Asymmetric disc bulging to the LEFT. Encroachment upon the ventral thecal sac. More significant encroachment into the LEFT subarticular recess and LEFT foramen. Mild central stenosis with moderate bilateral subarticular recess. Mild foraminal stenosis. Disc is contacting the traversing L3 nerve r oots. L3-4: Moderate diffuse annular disc bulging. Mild ligamentum flavum hypertrophy and facet arthritis. Moderate central, bilateral subarticular recess and foraminal stenosis. Greater foraminal stenosis in volving the RIGHT foramen. Increased soft tissue in the proximal RIGHT foramen. L4-5: Broad-based central disc protrusion. There is a large posterior laminectomy defect and postsurg ical changes. Low-attenuation at the surgical site cannot be further evaluated without IV contrast. T his all may be normal. There may be postoperative seroma. Abscess may appear similar. Widely patent. Thecal sac. Postoperative soft tissue extends into the foramina bilaterally. L5-S1: Large posterior laminectomy defect. No significant stenosis. Cystic mass RIGHT kidney measures at least 3.8 x 3.3 cm. Incompletely visualized. This can be further evaluated by ultrasound. Mild atherosclerosis aorta. CT/CT lumbar spine wo con* [id number] IMPRESSION: 1. Posterior lumbar fusion from L4 to S1. Large posterior laminectomy defects at L4 and L5. 2. Interbody spacer at L5-S1 appears intact and well seated. 3. Extensive postoperative changes at L4-5. Cannot further evaluate for infect ion, hematoma or seroma without IV contrast. These may all be satisfactory post operative changes. If there is concern for infection consider follow-up evaluat ion by MRI with contrast. 4. Mild central, subarticular recess and bilateral foraminal stenosis, LEFT gr eater than RIGHT at L1-2. 5. Disc encroachment into the subarticular recesses at L2-3 with contact on th e traversing L3 nerve roots. 6. Moderate central, bilateral subarticular recess and foraminal stenosis at L 3-4. Most significant stenosis RIGHT foramen. Small disc protrusion in the RIGH T proximal RIGHT foramen not excluded.
== END 2021-10-12 13:07 | disposition home or self-care (01) ==
PROVIDERS: PCP Nurse Practitioner Family; Visit Provider Physician Assistant
DX: M48.062 Spinal stenosis, lumbar region with neurogenic claudication (principal); Z48.89 Encounter for other specified surgical aftercare; Z98.1 Arthrodesis status
CPT/HCPCS: 72131

== ENCOUNTER → 2021-11-23 10:07 | Outpatient (BNVA) | payer OTHER, SELFPAY | PROVIDERS: PCP Nurse Practitioner Family; Visit Provider Physician Assistant | DX: Z98.1 Arthrodesis status (principal) | CPT/HCPCS: 72100 ==

== ENCOUNTER → 2021-12-28 10:46 | Outpatient (BNVA) | payer OTHER, SELFPAY | PROVIDERS: PCP Nurse Practitioner Family; Visit Provider Orthopaedic Surgery | DX: Z98.1 Arthrodesis status (principal) | CPT/HCPCS: 72100 ==

== ENCOUNTER → 2022-02-06 08:13 | Outpatient (BNVA) | payer OTHER, SELFPAY | PROVIDERS: PCP Nurse Practitioner Family; Visit Provider Orthopaedic Surgery | DX: Z47.89 Encounter for other orthopedic aftercare (principal); Z98.1 Arthrodesis status | CPT/HCPCS: 72100 ==

== ENCOUNTER → 2022-03-20 16:47 | Outpatient (BNVA) | payer OTHER, SELFPAY | PROVIDERS: PCP Nurse Practitioner Family; Visit Provider Orthopaedic Surgery | DX: M54.9 Dorsalgia, unspecified (principal); Z98.1 Arthrodesis status; Z98.890 Other specified postprocedural states | CPT/HCPCS: 72100 ==

== ENCOUNTER 2022-03-30 15:22 | Outpatient (CLI) | payer OTHER, SELFPAY ==
--- NOTE | 2022-03-30 17:00 | CTR_ITS ---
PROCEDURE INFORMATION: Exam: CT Lumbar Spine Without Contrast Exam date and time: 03/30/2022 3:29 PM Age: 62 years old Clinical indication: Low back pain; Prior surgery; Patient HX: History--s/p lumbar fusion x 7 months, worsening pain; Additional info: Status post fusion, increased pain TECHNIQUE: Imaging protocol: Computed tomography of the lumbar spine without contrast. Radiation optimization: All CT scans at this facility use at least one of these dose optimization techniques: automated exposure control; mA and/or kV adjustment per patient size (includes targeted exams where dose is matched to clinical indication); or iterative reconstruction. COMPARISON: CT lumbar spine wo con* [id number] 10/12/2021 1:49 PM RADIATION DOSE METRICS: Total DLP (mGy-cm): 1842.2 FINDINGS: Bones/joints: Complex lumbar postop findings are again seen. L4-S1 fusion again seen with L4 and L5 laminectomies at L5-S1 disc spacer. No acute fracture has developed. No focal bone destruction. Moderate diffuse lumbar facet arthropathy. Kidneys and ureters: The right upper kidney contains a 4.4 cm cyst. Vasculature: Diffuse vascular calcification. Retroaortic left renal vein. Lymph nodes: No evidence of triple a or lymphadenopathy. Soft tissues: Lumbar back and subcutaneous/paraspinal scarring again seen with some subcutaneous edema. Other findings: Compared to 10/12/2021, the findings are very similar. No significant change has occurred. CT/CT lumbar spine wo con* [id number] IMPRESSION: 1. Complex surgical patient as described with L4-S1 fusion. 2. No acute fracture, hardware complication or significant change. 3. Of note, CT does not well evaluate the intrathecal space and paraspinal soft tissues. These changes on CT are similar to the prior exam and presumed to be indicative of postop scarring/edema. If there is concern for infection, an MRI would be helpful. COMMENTS: Consistent with the [employer]'s Incidental Findings Committee white paper (J Am Marco Radiol 2018): Any incidental renal lesion less than 1 cm or classified as too small to characterize, or any incidental cystic renal lesion characterized as simple-appearing, is likely benign. No follow-up imaging is recommended for these lesions per consensus recommendations based on imaging criteria.
== END 2022-03-30 15:23 | disposition home or self-care (01) ==
LOC: RAD 15:23
PROVIDERS: PCP Nurse Practitioner Family; Visit Provider Orthopaedic Surgery
DX: M48.062 Spinal stenosis, lumbar region with neurogenic claudication (principal); Z98.1 Arthrodesis status
CPT/HCPCS: 72131

== ENCOUNTER → 2022-05-17 15:49 | Outpatient (BNVA) | payer OTHER, SELFPAY | PROVIDERS: PCP Nurse Practitioner Family; Visit Provider Orthopaedic Surgery | DX: Z98.1 Arthrodesis status (principal); Z98.890 Other specified postprocedural states | CPT/HCPCS: 72100 ==

== ENCOUNTER → 2022-06-28 13:46 | Outpatient (BNVA) | payer OTHER, SELFPAY | PROVIDERS: PCP Nurse Practitioner Family; Visit Provider Orthopaedic Surgery | DX: M54.9 Dorsalgia, unspecified (principal); Z98.1 Arthrodesis status | CPT/HCPCS: 72100 ==